=== PATIENT | male | born 1980 | race Caucasian/White ===

== ENCOUNTER 2016-11-21 11:24 | Emergency (ER) | payer OTHER, MEDICAID ==
[2016-11-21] MEDS ORDERED: Acetaminophen/oxyCODONE 325-5 MG Tab ONE (11:30)
[2016-11-21] MEDS ORDERED: Ketorolac 30 MG/ML SDV IVPUSH ONE (11:35)
[2016-11-21] MEDS ORDERED: Morphine 10 MG/ML Syringe IVPUSH ONE (11:36)
[2016-11-21] MEDS ORDERED: Ketorolac 30 MG/ML SDV ONE (11:48)
[2016-11-21] MEDS ORDERED: Morphine 10 MG/ML Syringe ONE (11:48)
[2016-11-21] MEDS ORDERED: Silver Sulfadiazine 1% Crm 50 GM Tube TOP ONE (12:04)
--- NOTE | 2016-11-21 16:00 | ER ---
HISTORY OF PRESENT ILLNESS: A 36-year-old male here with complaints of burning his left hand about a week ago. 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 The patient tells me that they would not allow him to come in for evaluation at a medical center, they used antibiotic ointment and told him to wear the rubber gloves. The patient kept working. He tells me that he was drinking a lot of alcohol in the evenings after work to help control his pain and taking Naprosyn. The patient tells me that he was fired today from his job as a cook, and [place]. The patient tells me he does not take any other medications, and he rates his pain at 8/10 or 9/10 today. OBJECTIVE: GENERAL APPEARANCE: The patient is awake and alert. He is obviously uncomfortable. EXTREMITIES: Examining the left hand reveals abrasion or debridement of the skin over the dorsal aspect of the hand. He has devitalized tissue involving all of the fingers, except the thumb from wearing the rubber glove with using antibiotic ointment. There is no sign of infection or drainage today. TREATMENT PLAN: An IV was started. The patient was given Toradol 30 mg IV and morphine 5 mg IV. This did help with his pain control. I was able to cleanse the area by soaking it and gently removing the antibiotic ointment with gauze. I also removed some of the devitalized tissue along the edges of his fingers. The hand has already been debrided, after which Silvadene was applied and covered with gauze and Julia. The patient is to change the dressing once a day. I will give him Percocet for pain control one tablet every six hours, giving 10 tablets. The patient is to keep his hand elevated. He tells me he is not from this area. He is from [place]. He does have a friend in [place], he will call and see if she will come and pick him up until he can make further plans. The patient has no further questions. DIAGNOSIS: Second-degree mast to left hand and proximal end of the second through fifth fingers. CRS/MODL /[id number]
== END 2016-11-21 12:40 | disposition home or self-care (01) ==
LOC: LB.ED 11:24
DX: T23.232A Burn of second degree of multiple left fingers (nail), not including thumb, initial encounter (principal); X12.XXXA Contact with other hot fluids, initial encounter; Y93.G3 Activity, cooking and baking; Y92.89 Other specified places as the place of occurrence of the external cause; Y99.0 Civilian activity done for income or pay
CPT/HCPCS: 16020; 96374; 96375; 99283; A9270; J1885; J2270